=== PATIENT | male | born 2000 | race American Indian/Alaskan Native ===

== ENCOUNTER 2021-08-01 21:08 | Emergency (ER) | payer SELFPAY ==
[2021-08-01 21:41] VITALS: BP 131/72
== END 2021-08-01 23:21 | disposition left against medical advice (07) ==
LOC: ED 21:08
DX: Z00.00 Encounter for general adult medical examination without abnormal findings (principal); Z53.21 Procedure and treatment not carried out due to patient leaving prior to being seen by health care provider; V89.2XXA Person injured in unspecified motor-vehicle accident, traffic, initial encounter; Y93.89 Activity, other specified; Y92.89 Other specified places as the place of occurrence of the external cause; Y99.8 Other external cause status

== ENCOUNTER 2021-08-02 13:18 | Emergency (ER) | payer OTHER ==
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
[2021-08-02 17:13] VITALS: BP 121/75
== END 2021-08-02 17:14 | disposition home or self-care (01) ==
LOC: ED 13:18
DX: S13.9XXA Sprain of joints and ligaments of unspecified parts of neck, initial encounter (principal); V89.2XXA Person injured in unspecified motor-vehicle accident, traffic, initial encounter; Y93.89 Activity, other specified; Y92.89 Other specified places as the place of occurrence of the external cause; Y99.8 Other external cause status
CPT/HCPCS: 72040; 72100; 99283